=== PATIENT | male | born 1985 | race Two or more races ===

== ENCOUNTER 2025-01-04 21:16 | Emergency (ER) | payer MEDICAID, SELFPAY ==
[2025-01-04 21:41] VITALS: BP 180/93; PULSE 92; RESP 22; TEMP 36.8; O2SAT 99; BMI 33.5
--- NOTE | 2025-01-04 22:17 | PD.EDURI ---
Upper Respiratory Inf. RME/HPI General Chief Complaint: Flu Like Symptoms Stated Complaint: COVID this morning-diaphoretic Time Seen by Provider: 01/04/25 22:06 Arrival date/time: 01/04/25 21:16 RME / HPI RME / HPI Narrative: 39-year-old male patient with no significant past medical history, came in for evaluation regarding flulike symptoms. Patient's been having bodyaches, sore throat, fever, joint pains, not feeling well, chills, severity moderate. Patient tested positive for COVID early today. Patient denies any cough. Denies any other complaints. No medications taken prior to ER visit. Related Data Previous Rx's ?Medication ?Instructions ?Recorded ibuprofen 800 mg tablet 800 mg PO TID PRN pain #30 tabs 01/04/25 Allergies Allergy/AdvReac Type Severity Reaction Status Date / Time No Known Allergies Allergy Verified 11/05/17 18:17 Review of Systems Review of Systems Narrative Review of Systems: Review of system reviewed and within normal limits except mentioned in HPI ED Exam Narrative Physical exam: VITAL SIGNS: Reviewed. GENERAL APPEARANCE: Alert and interactive, follows commands, no acute distress, HEAD AND FACE: Non-traumatic. ENT: PERRL, pink conjunctivitis, eyelid no trauma, Mucous membrane moist. NECK: Supple, nontender, no nuchal rigidity. CHEST: No tenderness, no crepitus, no paradoxical movement, no retractions. LUNGS: Clear, well ventilated, symmetric, no rales, no wheezing, no ronchi, no stridor, good breath sounds bilaterally. HEART: Regular rate, regular rhythm, no murmur, no gallops. ABDOMEN: Soft, positive bowel sounds, nondistended, no guarding, nontender, no rebound, no masses, RECTAL: Deferred. GENITAL: Deferred. NEUROLOGICAL: Gross motor function intact sensory function intact, Appropriate for age. MUSCULOSKELETAL: low back nontender, full range of motion. EXTREMITIES: Nontender, full range of motion. SKIN: Color pink, dry, no rash, no lacerations, no abrasions, no contusions. LYMPHATICS: Deferred. Course Quality Measures none Orders Category Date Time Status Bedside COVID-19 Antigen Test NOW Care 01/04/25 21:47 Completed Bedside Influenza A&B Antigen Test NOW Care 01/04/25 21:47 Completed Insert IV NOW Care 01/04/25 22:24 Completed Acetaminophen Tab [Tylenol ES Tab] Med 01/04/25 22:17 Discontinued 1,000 mg PO X1 ONE Ketorolac Inj [Toradol Inj] Med 01/04/25 22:16 Discontinued 30 mg IVP X1 ONE Labetalol IV [Trandate IV] Med 01/04/25 23:08 Discontinued 10 mg IVP X1 ONE Sodium Chloride 0.9% 1000 ml [Ns] 1,000 ml Med 01/04/25 22:16 Discontinued IV 999 mls/hr cloNIDine HCL [Catapres] Med 01/04/25 22:18 Discontinued 0.1 mg PO X1 ONE hydrALAZINE INJ [Apresoline Inj] Med 01/04/25 23:03 Discontinued 10 mg IVP X1 ONE Vital Signs Vital signs: Vital Signs Temperature 98.2 F 01/04/25 21:41 Pulse Rate 92 01/04/25 21:41 Respiratory Rate 22 H 01/04/25 21:41 Blood Pressure 180/93 H 01/04/25 21:41 Pulse Oximetry (%) 99 01/04/25 21:41 Oxygen Delivery Method Room Air 01/04/25 21:41 Upper Respiratory Infection MDM Narrative MDM Narrative:: 39-year-old male patient with no significant past medical history, came in for evaluation regarding flulike symptoms. Patient's been having bodyaches, sore throat, fever, joint pains, not feeling well, chills, severity moderate. Patient tested positive for COVID early today. Patient denies any cough. Denies any other complaints. No medications taken prior to ER visit. Patient received IV fluids, Tylenol, Toradol, clonidine and labetalol for blood pressure elevation. Patient verbalized significant improvement of symptoms. Patient blood pressure was noted to be 161/105 heart rate of 80 prior to discharge. Patient data External records reviewed:: None Clinical information provided by:: patient and family Social determinants that could affect healthcare access:: none Patient has the following chronic illnesses:: None How is presenting disease/condition affected by chronic disease/condition?: no chronic disease Evaluation data The following diagnostics were reviewed and interpreted by me:: other (specify) Lab and/or radiology exams considered but not ordered:: None Interpretation Summary: None Medications / Prescriptions Medications or Prescriptions considered but not ordered:: None Medication administrations:: Medication Administration History Discontinued Medications Acetaminophen (Acetaminophen 500 Mg Tablet) 1,000 mg PO X1 ONE Stop: 01/04/25 22:18 Last Admin: 01/04/25 22:27 Dose: 1,000 mg Documented By: SHYANNE Clonidine (Clonidine Hcl 0.1 Mg Tablet) 0.1 mg PO X1 ONE Stop: 01/04/25 22:19 Last Admin: 01/04/25 22:27 Dose: 0.1 mg Documented By: SHYANNE Hydralazine HCl (Hydralazine Inj 20 Mg/Ml Vial) 10 mg IVP X1 ONE Stop: 01/04/25 23:04 Last Admin: 01/04/25 23:10 Dose: Not Given Documented By: KIA Non-Admin Reason: Cancelled by Provider Sodium Chloride (Ns) 1,000 mls @ 999 mls/hr IV .Q1H1M ONE Stop: 01/04/25 23:16 Last Infusion: 01/04/25 23:31 Dose: Infused Documented By: Admin: 01/04/25 22:29 Dose: 999 mls/hr Documented By: SHYANNE Ketorolac Tromethamine (Ketorolac Inj 30 Mg/Ml Vial) 30 mg IVP X1 ONE Stop: 01/04/25 22:17 Last Admin: 01/04/25 22:27 Dose: 30 mg Documented By: SHYANNE Labetalol HCl (Labetalol Inj 5 Mg/Ml Vial 20 Ml) 10 mg IVP X1 ONE Stop: 01/04/25 23:09 Last Admin: 01/04/25 23:26 Dose: 10 mg Documented By: KIA see in MDM Consultations Consultation(s) initiated? (list below): No Diagnosis Upper Respiratory Differential Diagnosis: upper respiratory infection and viral infection Most likely diagnosis given after review of the tests above:: COVID Admission Indicated Admission indicated?: not indicated Admission Request Was there a request for admission?: No Disposition Plan Disposition Plan: Discharge Discharge Attestation Discharge Attestation: The patient and all family members were given an opportunity to ask questions and understood the discharge instructions. Discharge instructions specifically effects, indications for sooner follow up or return to the emergency department, and the expected course of current diagnosis. Patient condition: Stable Discharge Plan Plan Patient Disposition: HOME (Self Care) Discharge Disposition comment: Stable Prescriptions/Referrals Prescriptions/Med Rec: New ibuprofen 800 mg tablet 800 mg PO TID PRN (Reason: pain) Qty: 30 0RF Referrals: No Primary/Family,Physician [Primary Care Provider] - In 1 week Problem List Clinical Impression: COVID Patient/Caregiver Discharge Instructions Discharge Activity: activity as tolerated Education Materials: Arron [id number] Additional Instructions: Thank you for the opportuniity for serving you today. You are stable for discharged . You are advised to: Follow-up with your PCP in 1 to 2 days Return to ED for worsening of symptoms Increase oral fluids Take medication as prescribed Your blood pressure is elevated today please follow-up with your doctor tomorrow you probably need long-term blood pressure medication. Print Language: [place]ian Stand Alone Forms: Trisha Award Info., Patient Portal Info Letter PA/WOOD BORER Supervising Physician PA/WOOD BORER Supervising Physician: MD Darek
[2025-01-04 22:27] VITALS: BP 170/114; PULSE 97
[2025-01-04] MEDS: KETOROLAC INJ 30 MG/ML VIAL IVP (22:27)
[2025-01-04] MEDS: ACETAMINOPHEN 500 MG TABLET 1000 MG PO (22:27)
[2025-01-04] MEDS: SODIUM CHLORIDE 0.9% 1000 ML 1,000 ML 999 ML IV (22:29)
[2025-01-04 23:26] VITALS: BP 180/128; PULSE 97
[2025-01-04] MEDS: LABETALOL INJ 5 MG/ML VIAL 20 ML 10 MG IVP (23:26)
[2025-01-04 23:43] VITALS: BP 161/105; PULSE 80; RESP 18; TEMP 36.5; O2SAT 96
== END 2025-01-05 00:07 | disposition home or self-care (01) ==
PROVIDERS: Emergency Provider Emergency Medicine
DX: U07.1 COVID-19 (principal)
CPT/HCPCS: 87400; 87811; 96361; 96374; 96375; 99283; J1885; J3490; J7030; A9270; J1920